=== PATIENT | female | born 1955 | race Caucasian/White ===

== ENCOUNTER 2018-05-10 12:57 | Inpatient (IN) | payer MEDICAID, BC | END 2018-05-17 13:44 | disposition home or self-care (01) | LOC: ER 12:57 → SUR 3N 05-12 13:45 → ED HOLD 15:14 → SUR 3N 17:00 | PROC: 0DNH0ZZ Release Cecum, Open Approach (ICD-10-PCS; principal; 2018-05-11 14:25) | PROC: 0DB80ZZ Excision of Small Intestine, Open Approach (ICD-10-PCS; 2018-05-11 14:25) | PROC: 0DN80ZZ Release Small Intestine, Open Approach (ICD-10-PCS; 2018-05-11 14:25) | PROC: 0DTJ0ZZ Resection of Appendix, Open Approach (ICD-10-PCS; 2018-05-11 14:25) | DX: K56.601 Complete intestinal obstruction, unspecified as to cause (principal); E03.9 Hypothyroidism, unspecified; I10 Essential (primary) hypertension; F32.9 Major depressive disorder, single episode, unspecified; N39.0 Urinary tract infection, site not specified; R00.0 Tachycardia, unspecified ==

== ENCOUNTER 2019-11-02 20:51 | Emergency (ER) | payer BC, MEDICAID ==
[~2019-11-02] VITALS: Ht 152.4 cm; Wt 75.9 kg
[~2019-11-02 20:51] MED LIST: ARIP15TA3 PO; BUPR75TA12 PO; CARV6.253 PO; CHOL100046 PO; CYAN25003 SL; ESCI20TA45 PO; ESTR0.5T28 PO; FURO40TA4; HYDR-3972 PO; IPRA30SP; LEVO150T8; LISI-600; OMEP40CA13 PO; POTA10TA15 PO; TOPI25TA49
[2019-11-02] MEDS ORDERED: DOXY100C76 PO (21:52)
[2019-11-02 22:13] VITALS: BP 119/78
--- NOTE | 2019-11-03 09:32 | NUR ---
Patient called regarding ED visit yesterday. Patient stated that she was supposed to be continuing to take her clindamycin that she was prescribed at a doctor's office in [place], but when coming to [place] patients son packed her bags and the medication was forgotten. I spoke with Anibal TRIMBLE regarding this and per Luis TRIMBLE yesterday patient was to continue medication. Ainbal TRIMBLE gave me verbal orders to call in a prescription for clindamycin 450 mg PO QID x14 days with 0 refills. Notified patient that I would all in prescription for her and that she could go pick it up later today. Patient stated that she would like prescription to be called into [facility] [address] [facility]. Call in prescriptions to [facility] per patient request.
== END 2019-11-02 22:16 | disposition home or self-care (01) ==
LOC: ER 20:52
DX: L97.519 Non-pressure chronic ulcer of other part of right foot with unspecified severity (principal); I10 Essential (primary) hypertension; J45.909 Unspecified asthma, uncomplicated; F32.9 Major depressive disorder, single episode, unspecified; Z98.890 Other specified postprocedural states; Z72.89 Other problems related to lifestyle; Z90.49 Acquired absence of other specified parts of digestive tract; Z88.8 Allergy status to other drugs, medicaments and biological substances; Z88.6 Allergy status to analgesic agent; Z79.899 Other long term (current) drug therapy
CPT/HCPCS: 73630; 99283

== ENCOUNTER 2019-11-05 08:20 | Outpatient (CLI) | payer BC ==
[~2019-11-05 08:20] MED LIST changes: +DOXY100C76 PO; -LEVO150T8; +LEVO150T8 PO
[2019-11-05] MEDS ORDERED: LIDOcaine 2% 5ml jelly ONE (09:09)
[2019-11-05 09:34] LABS: BASOPHILS % (AUTO) 0.2 % (0-1); EOSINOPHILS % (AUTO) 0 % (0-6); HEMATOCRIT 35.6 % (35.0-45.0); HEMOGLOBIN 11.8 g/dl (12.0-16.0); LYMPHOCYTES # (AUTO) 0.9 X10'3 (1.1-4.8); LYMPHOCYTES % (AUTO) 18.1 % (21-51); MEAN CORPUSCULAR HEMOGLOBIN 26.6 PG (27.0-31.0); MEAN CORPUSCULAR HGB CONC 33.1 g/dL (33.0-36.5); MEAN CORPUSCULAR VOLUME 80.4 FL (78-98); MEAN PLATELET VOLUME 7.6 FL (7.4-10.4); MONOCYTES # (AUTO) 0.8 X10'3 (0-0.9); MONOCYTES % (AUTO) 15.3 % (2-12); NEUTROPHILS # (AUTO) 3.3 X10'3 (1.8-7.7); NEUTROPHILS % (AUTO) 66.4 % (42-75); PLATELET COUNT 252 X10'3 (140-440); RED BLOOD COUNT 4.43 X10'6 (4.20-5.60); RED CELL DISTRIBUTION WIDTH 17.5 % (11.5-14.5)
[2019-11-05 09:56] LABS: ALANINE AMINOTRANSFERASE 26 U/L (12-78); ALBUMIN 3.5 G/DL (3.4-5.0); ALBUMIN/GLOBULIN RATIO 1.1 (1.1-1.5); ALKALINE PHOSPHATASE 95 IU/L (46-116); ANION GAP 6 (8-16); ASPARTATE AMINO TRANSFERASE 18 U/L (10-37); BILIRUBIN,TOTAL 0.5 MG/DL (0.1-1.0); BLOOD UREA NITROGEN 15 MG/DL (7-18); BUN/CREATININE RATIO 18.5 (6.6-38.0); C-REACTIVE PROTEIN 1.46 MG/DL (0.0-0.5); CALCIUM 9.1 MG/DL (8.5-10.1); CHLORIDE 92 MMOL/L (99-107); CREATININE 0.81 MG/DL (0.40-0.90); GLUCOSE 109 MG/DL (70-104); POTASSIUM 3.6 MMOL/L (3.5-5.1); SODIUM 128 MMOL/L (135-145); TOTAL CARBON DIOXIDE 29.6 MMOL/L (24-32); TOTAL PROTEIN 6.6 G/DL (6.4-8.2); eGFR 71 ML/MIN
[2019-11-05 10:02] LABS: HEMOGLOBIN A1C 5.8 % (4.5-6.2)
[2019-11-11] MEDS ORDERED: DOXY-327 PO (11:50)
== END 2019-11-05 11:09 | disposition home or self-care (01) ==
LOC: EDSTATUS 08:20 → WOUND CARE 08:20
PROVIDERS: ATTEND Nurse Practitioner
DX: S91.109A Unspecified open wound of unspecified toe(s) without damage to nail, initial encounter (principal); L97.512 Non-pressure chronic ulcer of other part of right foot with fat layer exposed; M20.42 Other hammer toe(s) (acquired), left foot; I10 Essential (primary) hypertension; K21.9 Gastro-esophageal reflux disease without esophagitis; E07.9 Disorder of thyroid, unspecified; M19.90 Unspecified osteoarthritis, unspecified site; M10.9 Gout, unspecified; F32.9 Major depressive disorder, single episode, unspecified; Z90.89 Acquired absence of other organs; Z98.890 Other specified postprocedural states; Z90.49 Acquired absence of other specified parts of digestive tract; Z79.899 Other long term (current) drug therapy; Z96.60 Presence of unspecified orthopedic joint implant; W29.8XXD Contact with other powered hand tools and household machinery, subsequent encounter; Y93.89 Activity, other specified; Y92.89 Other specified places as the place of occurrence of the external cause; Y99.8 Other external cause status
CPT/HCPCS: 36415; 80053; 83036; 85025; 85651; 86140; 87635; 93005; G0463

== ENCOUNTER 2019-11-12 08:26 | Day surgery (SDC) | payer BC ==
[~2019-11-12] VITALS: Ht 152.4 cm; Wt 75.8 kg
[~2019-11-12 08:26] MED LIST changes: +DOXY-327 PO; -DOXY100C76 PO; -HYDR-3972 PO; +MESSAGE TO NURSING PO ONE; -TOPI25TA49; +cefazolin/dext.iso 2gm/50ml 50 ML IV ONE; +famotidine 20mg tablet PO ONE; +ringers solution, lacted 1,000 ML IV SCH
[2019-11-12 09:05] VITALS: BP 111/70
[2019-11-12] MEDS ORDERED: bacitracin 15gm ointment TP ONE (09:48)
[2019-11-12] MEDS ORDERED: BUPIVAcaine/PF 2.5 mg/ml (0.25%) 30ml vial ONE (09:49)
[2019-11-12] MEDS ORDERED: ringers solution, lacted 1,000 ML IV SCH (10:48)
[2019-11-12] MEDS ORDERED: ondansetron/PF 4mg/2ml inj IV PRN (10:50)
[2019-11-12] MEDS ORDERED: morphine 2 MG/ML inj. syringe IV PRN (10:50)
[2019-11-12] MEDS ORDERED: morphine 4 MG/ML inj SYRINge IV PRN (10:50)
[2019-11-12] MEDS ORDERED: ROPIVAcaine 0.5% (5mg/ml) 30ml vial ONE (11:24)
[2019-11-12] MEDS ORDERED: propofol inj 20 ML IV ONE (11:48)
[2019-11-12 12:03] VITALS: BP 106/70
--- NOTE | 2019-11-12 12:03 | NUR ---
ARRIVED IN PACU VIA GURNEY FROM OR WITH DR Batista IN ATTENDANCE. REPORT RECEIVED. PT AWAKE AND VS STABLE
[2019-11-12 12:13] VITALS: BP 114/76
[2019-11-12 12:23] VITALS: BP 114/79
--- NOTE | 2019-11-12 12:33 | NUR ---
PT AWAKE, DRINKING SODA. WAITING FOR RIDE. REVIEWED DISCHARGE INSTRUCTIONS WITH HER
--- NOTE | 2019-11-12 12:53 | NUR ---
UP STEADY ON FEET WITH PARTIAL WT BEARING. DRESSED WITHOUT HELP. W/C TO BR VOIDED QS. TO CAR ASSISTED BY NURSE WITHOUT INCIDENT
--- NOTE | 2019-11-12 13:01 | NUR ---
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
== END 2019-11-12 12:53 | disposition home or self-care (01) ==
LOC: PAS 08:26
PROVIDERS: ATTEND Podiatrist Foot & Ankle Surgery
DX: M86.8X7 Other osteomyelitis, ankle and foot (principal); L97.519 Non-pressure chronic ulcer of other part of right foot with unspecified severity
CPT/HCPCS: 28825; 82948; A6222; J2704; J3490; A6449; A7000; J2795; J7120

== ENCOUNTER 2024-12-30 18:51 | Emergency (ER) | payer MEDICARE, OTHER ==
[~2024-12-30] VITALS: Ht 152.4 cm; Wt 70.4 kg
[~2024-12-30 18:51] MED LIST changes: +BUPR-297 PO; -BUPR75TA12 PO; -DOXY-327 PO; +DOXY-460 PO; +ESCI20TA39 PO; -ESCI20TA45 PO; -LISI-600; +LISI20TA28; -MESSAGE TO NURSING PO ONE; -OMEP40CA13 PO; -cefazolin/dext.iso 2gm/50ml 50 ML IV ONE; -famotidine 20mg tablet PO ONE; -ringers solution, lacted 1,000 ML IV SCH
--- NOTE | 2024-12-30 19:14 | ELECTROCARDIOGRAPH REPORT ---
[facility] Test Date: 2024-12-30 Test Time: 19:11:46 Pat Name: RUPAL CASE Department: EMERGENCY ROOM Room: Gender: F Legal Billing Coordinator: MORENA : 1955 Requested By: DEV BURNS Order Number: [id number] Reading MD: Dr. Bob Jeffers Measurements Intervals [place] Rate: 82 P: 47 ID: [id number] QRS: 28 QRSD: 87 T: 47 QT: 377 QTc: 441 Interpretive Statements Sinus rhythm Probable left atrial enlargement Probable anteroseptal infarct, old Baseline wander in lead(s) V2 Electronically Signed On 12-31-2024 7:40:[address] Bob Jeffers Please click the below link to view image of tracing.
[2024-12-30 19:16] LABS: MEAN PLATELET VOLUME 8.6 FL (7.4-10.4); RED CELL DISTRIBUTION WIDTH 15.8 % (11.5-14.5)
[2024-12-30 19:32] LABS: CREATININE 0.86 MG/DL (0.40-0.90); TOTAL CARBON DIOXIDE 30.3 MMOL/L (24-32); eCRCL 44 ML/MIN; eGFR 65 ML/MIN
[2024-12-30 19:39] LABS: PRO BRAIN NATRIURETIC PEPTIDE 162 PG/ML (0-125)
--- NOTE | 2024-12-30 19:40 | RADIOLOGY REPORT ---
CHEST RADIOGRAPH Indication: CP Technique: Single frontal view of the chest was obtained Comparison: None FINDINGS: Lines and Tubes: None Lungs: No focal consolidation. Pleura: No effusion. No pneumothorax. Cardiomediastinal contours: Unremarkable Bones: No acute osseous abnormality. IMPRESSION: No acute cardiopulmonary disease.
--- NOTE | 2024-12-30 22:58 | Physician Documentation ---
History of Present Illness ~ General Chief Complaint: See Chief Complaint Stated Complaint: NECK PAIN Time Seen by MD: 22:35 Primary Medical Doctor: n/a Mode of Arrival: POV History of Present Illness Initial Comments Patient presents to the emergency room with chief complaint of blue lips. Patient has history of paroxysmal atrial fibrillation. Patient was in the kitchen when her daughter came home from work and noticed that her lips were blue. She also is feeling a little short of breath and she looked down at her watch that has said atrial fibrillation therefore she came in to be evaluated. She is feeling much better now. Denies any chest pain. Medication Reconciliation Allergies: Coded Allergies: promethazine (Verified Allergy, Mild, 12/30/24) dystonia midazolam HCl (Verified Allergy, Unknown, 12/30/24) prochlorperazine (Verified Allergy, Unknown, 12/30/24) ibuprofen (Verified Adverse Reaction, Unknown, HYPERTENSIVE CRISIS, 12/30/24) Uncoded Allergies: BLUE CHEESE (Allergy, Severe, Swelling, 10/02/10) RYE (Allergy, Severe, Swelling, 10/02/10) [place] CHEESE (Allergy, Severe, Swelling, 10/02/10) BENEDRYL (Allergy, Unknown, 05/10/18) DEMORAL (Adverse Reaction, Unknown, 05/10/18) Scheduled Aripiprazole* (Abilify*), 15 TAB PO DAILY, (Reported) Bupropion HCl (Bupropion HCl), 2 TAB PO BID, (Reported) Carvedilol (Carvedilol), 1 TAB PO BID, (Reported) Cholecalciferol (Vitamin D), 5 CAP PO DAILY, (Reported) Cyanocobalamin (Vitamin B-12) (Vitamin B-12), 2,500 MCG SL DAILY, (Reported) Doxycycline Monohydrate (Doxycycline Monohydrate), 1 TAB PO BID, (Reported) Escitalopram Oxalate (Escitalopram Oxalate), 1 TAB PO DAILY, (Reported) Estradiol (Estradiol), 1 TAB PO DAILY, (Reported) Furosemide (Furosemide), DAILY, (Reported) Ipratropium [place] Nasal [place]* (Atrovent Nasal [place]*), BID, (Reported) Levothyroxine Sodium (Levothyroxine Sodium), 200 MCG PO DAILY, (Reported) Lisinopril (Lisinopril), DAILY, (Reported) Potassium Chloride (Potassium Chloride), 2 TAB PO BID, (Reported) Past Medical History Past Medical History: Hypertension, Asthma, Peptic Ulcer Disease, UTI, Depression Past Surgical History: gastric bypass, hysterectomy, orthopedic surgeries, other Alcohol Use: Occasionally Drug Use: none Lives In: Home Review of Systems ROS All review of systems negative except as per HPI Physical Exam Physical Exam Vital Signs: Temperature: 97.8, Source: Temporal, Heart Rate: 76, Respiratory Rate: 18, BP: 135/84, Pulse Oximetry: 99, Weight: 70.400 Oxygen Flow Rate: 0 Physical Exam General: Patient is awake, alert, oriented x4 in no acute distress and well appearing.~ Head: Normocephalic and atraumatic. Eyes: Conjunctival normal. EOMI. PERRL. ENT: Mucous membranes moist. Good skin color Neck: Supple, trachea is midline. Chest: Clear to auscultation bilaterally without rales, rhonchi, or wheezes. There is no accessory muscle use or retractions. Cardiac: RRR without murmurs, gallops, or rubs. Abd: Soft, nondistended, nontender, with normoactive bowel sounds. No guarding, rebound, or rigidity. Extremities: Normal strength. Normal range of motion. No deformities or edema. Progress Results/Orders Results/Orders Orders - DEVIN HENSLEY MD Chest,Single View (12/30/24 19:05) Monitor (12/30/24 19:05) Saline Lock (12/30/24 19:05) Oxygen (12/30/24 19:05) Hs Troponin I W Calculations (12/30/24 22:05) Completed Orders - DEVIN HENSLEY MD Chest,Single View (12/30/24 19:05) Cbc/Diff (12/30/24 19:05) BMP (12/30/24 19:05) PBNP (12/30/24 19:05) Electrocardiogram (12/30/24 19:05) Hs Troponin I W Calculations (12/30/24 19:05) Hs Troponin I W Calculations (12/30/24 21:05) CMP (12/30/24 19:05) Vital Signs 12/30/24 12/30/24 12/30/24 18:54 22:21 22:31 Temp 97.8 Pulse 90 76 Resp 16 18 18 B/P (MAP) 130/81 135/84 (101) Pulse Ox 100 99 O2 Flow Rate 0 Laboratory Tests Test 12/30/24 19:09 12/30/24 21:06 12/30/24 22:16 White Blood Count 10.0 Red Blood Count 4.61 Hemoglobin 11.8 L Hematocrit 35.8 Mean Corpuscular Volume 77.5 L Mean Corpuscular Hemoglobin 25.5 L Mean Corpuscular Hemoglobin Concent 32.9 L Red Cell Distribution Width 15.8 H Platelet Count 257 Mean Platelet Volume 8.6 Neutrophils (%) (Auto) 68.3 Lymphocytes (%) (Auto) 21.0 Monocytes (%) (Auto) 9.7 Eosinophils (%) (Auto) 0.5 Basophils (%) (Auto) 0.5 Neutrophils # (Auto) 6.8 Lymphocytes # (Auto) 2.1 Monocytes # (Auto) 1.0 H Eosinophils # (Auto) 0.1 Basophils # (Auto) 0.1 CBC Comment Sodium Level 136 Potassium Level 3.9 Chloride Level 102 Carbon Dioxide Level 30.3 Anion Gap 4 L Blood Urea Nitrogen 15 Creatinine 0.86 Estimated GFR/1.73 m2 65 BUN/Creatinine Ratio 17.4 Glucose Level 92 Calcium Level 8.5 Total Bilirubin 0.3 Aspartate Amino Transf (AST/SGOT) 31 Alanine Aminotransferase (ALT/SGPT) 27 Alkaline Phosphatase 112 Troponin I High Sensitivity 4 4 Pro-B-Type Natriuretic Peptide 162 H Total Protein 6.8 Albumin 3.5 Globulin 3.3 Albumin/Globulin Ratio 1.1 Chemistry Comments Troponin I High Sens Percent Delta 0 Troponin I Hi Sens Absolute Change 0 EKG/XRAY/CT/US/VASC/MRI EKG : Additional Comment EKG interpreted by myself shows time of 1910, rate 82, sinus rhythm, normal axis, no ST changes Chest X-Ray : Additional Comments Exam: CHEST,SINGLE VIEW CHEST RADIOGRAPH Indication: CP Technique: Single frontal view of the chest was obtained Comparison: None FINDINGS: Lines and Tubes: None Lungs: No focal consolidation. Pleura: No effusion. No pneumothorax. Cardiomediastinal contours: Unremarkable Bones: No acute osseous abnormality. IMPRESSION: No acute cardiopulmonary disease. Medical Decision Making Additional information obtaine: old records Findings Patient presents to the emergency room with chief complaint of blue lips. Differentials include but are not limited to hypoxia, ACS, anemia, hypothermia therefore emergent labs and imaging indicated. Labs and imaging are reassuring. Patient's physical exam shows good skin color and daughter at bedside agrees. Unknown what occurred during patient's reported episode. Possible episode of atrial fibrillation leading to some symptoms. Her EKGs reassuring for sinus rhythm at this juncture. ER precautions discussed. Differential Diagnosis As above Departure Disposition: HOME / SELF CARE / HOMELESS Impression: Primary Impression: General medical exam Condition: Stable Discharge Instructions: General Discharge Instructions Referrals: NO PRIMARY CARE PROVIDER (PCP) Prescriptions Nitroglycerin SL* (Nitrostat SL*) 0.4 Mg Tablet 1 TAB SL Q5MIN PRN for Chest pain Q5min PRNx3-call MD, #25 TAB Prov: DEVIN HENSLEY MD 12/30/24 Nitroglycerin (Nitro-Bid) 2 % Oint...g. 1 APPLIC TOP BID, #1 TUBE Prov: DEVIN HENSLEY MD 12/30/24 Lisinopril (LISINOPRIL) 10 Mg Tablet 1 TAB PO DAILY for 30 Days, #30 TAB 0 Refills Prov: DEVIN HENSLEY MD 12/30/24 Signature Scribe Signature: No scribe Attestation: The note accurately reflects work and decisions made by me.Devin Hensley MD 12/30/24 23:00 DEVIN HENSLEY MD Dec 30, 2024 22:58
[2024-12-30] MEDS ORDERED: NITR1OIN TOP (23:00)
[2024-12-30] MEDS ORDERED: LISI10TA27 PO (23:00)
[2024-12-30] MEDS ORDERED: NITR0.4T51 SL (23:00)
[2024-12-30 23:12] VITALS: BP 125/82; PULSE 75; RESP 20; TEMP 97.8; O2SAT 98
== END 2024-12-30 23:14 | disposition home or self-care (01) ==
LOC: ER 18:51
DX: Z00.00 Encounter for general adult medical examination without abnormal findings (principal); J45.909 Unspecified asthma, uncomplicated; I10 Essential (primary) hypertension; F32.A Depression, unspecified; Z88.8 Allergy status to other drugs, medicaments and biological substances; Z87.440 Personal history of urinary (tract) infections; Z87.11 Personal history of peptic ulcer disease; Z90.710 Acquired absence of both cervix and uterus; Z79.899 Other long term (current) drug therapy; Z72.89 Other problems related to lifestyle
CPT/HCPCS: 36415; 71045; 80053; 83880; 84484; 85025; 93005; 99285

== ENCOUNTER 2025-01-01 08:56 | Emergency (ER) | payer MEDICARE, OTHER ==
[~2025-01-01] VITALS: Ht 152.4 cm; Wt 69.9 kg
[~2025-01-01 08:56] MED LIST changes: +LISI10TA27 PO; +NITR0.4T51 SL; +NITR1OIN TOP
[2025-01-01 09:06] VITALS: BP 118/83; PULSE 90; RESP 16; TEMP 97.7; O2SAT 98
--- NOTE | 2025-01-01 11:47 | RADIOLOGY REPORT ---
Indication: toe pain with wound s/p stubbed toe a week ago Technique: DI TOE(S)TOES Comparison: None FINDINGS/IMPRESSION: Internal fixation of the 5th proximal, middle and distal phalanx. 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 Possible dislocation of the 4th PIP joint. Correlate with point tenderness/ physical examination findings. 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 Correlate clinically. Osteopenia. Diffuse right foot soft tissue edema especially along the dorsal aspect.
[2025-01-01] MEDS ORDERED: CEPH-585 PO (12:04)
--- NOTE | 2025-01-01 12:08 | Physician Documentation ---
History of Present Illness ~ Chief Complaint: Toe pain Stated Complaint: INFECTED TOE Time Seen by MD: 10:51 OK to notify your PCP?: Yes Primary Medical Doctor: dr. fink in [place] Source: patient Mode of Arrival: POV Exam Limitations: no limitations HPI 69-year-old female with chief complaint right toe pain and concerned that her toe has an infection. She states that her toe has been causing her pain for the past week after she stubbed her toe. Since the pain has not improved and since the toe has gotten increasingly more red and swollen she was concerned about an infection. She states she is visiting here from [place] and will be going back home within the next week. She denies diabetes or any history of peripheral arterial disease. She has been dressing the toe with a gauze and waterproof dressing. She has not noticed an odor from the area, no fever, chills or pain with movement of toe. Tetanus witin 5 years: Yes Medication Reconciliation Allergies: Coded Allergies: promethazine (Verified Allergy, Mild, 01/01/25) dystonia midazolam HCl (Verified Allergy, Unknown, 01/01/25) prochlorperazine (Verified Allergy, Unknown, 01/01/25) ibuprofen (Verified Adverse Reaction, Unknown, HYPERTENSIVE CRISIS, 01/01/25) Uncoded Allergies: BLUE CHEESE (Allergy, Severe, Swelling, 10/02/10) RYE (Allergy, Severe, Swelling, 10/02/10) [place] CHEESE (Allergy, Severe, Swelling, 10/02/10) BENEDRYL (Allergy, Unknown, 05/10/18) DEMORAL (Adverse Reaction, Unknown, 05/10/18) Scheduled Aripiprazole* (Abilify*), 15 TAB PO DAILY, (Reported) Bupropion HCl (Bupropion HCl), 2 TAB PO BID, (Reported) Carvedilol (Carvedilol), 1 TAB PO BID, (Reported) Cholecalciferol (Vitamin D), 5 CAP PO DAILY, (Reported) Cyanocobalamin (Vitamin B-12) (Vitamin B-12), 2,500 MCG SL DAILY, (Reported) Doxycycline Monohydrate (Doxycycline Monohydrate), 1 TAB PO BID, (Reported) Escitalopram Oxalate (Escitalopram Oxalate), 1 TAB PO DAILY, (Reported) Estradiol (Estradiol), 1 TAB PO DAILY, (Reported) Furosemide (Furosemide), DAILY, (Reported) Ipratropium [place] Nasal [place]* (Atrovent Nasal [place]*), BID, (Reported) Levothyroxine Sodium (Levothyroxine Sodium), 200 MCG PO DAILY, (Reported) Lisinopril (Lisinopril), DAILY, (Reported) Lisinopril (Lisinopril), 1 TAB PO DAILY Nitroglycerin (Nitro-Bid), 1 APPLIC TOP BID Potassium Chloride (Potassium Chloride), 2 TAB PO BID, (Reported) Scheduled PRN Nitroglycerin SL* (Nitrostat SL*), 1 TAB SL Q5MIN PRN for Chest pain Q5min PRNx3-call Past Medical History Past Medical History: No Pertinent History, Hypertension, Asthma, Peptic Ulcer Disease, UTI, Depression Past Surgical History: gastric bypass, hysterectomy, orthopedic surgeries, ot her Alcohol Use: Occasionally Drug Use: none Lives In: Home Review of Systems All Other Systems at this time: Reviewed and Negative Physical Exam Vital Signs: Temperature: 97.7, Source: Temporal, Heart Rate: 90, Respiratory Rate: 16, BP: 118/83, Pulse Oximetry: 98, Weight: 69.900 Oxygen Flow Rate: 0 Physical Exam General Appearance: Alert, WD/WN. NAD. HEENT: NCAT, PERRL, EOMI. Neck: Supple, trachea midline. Cardiovascular: RRR. No m/r/g. Pedal pulses 2+ bilaterally. Lungs: CTAB. Breathing unlabored Extremities: Normal inspection. No edema. Skin: Warm/dry, normal color. Right big toe open wound measuring about 2 cm in diameter, very superficial. Just the overlying dermis has been removed, visible epidermis, beefy red, clear drainage from wound, no odor. Surrounding the wound the skin is erythematous and mildly edematous over the medial aspect of the wound where there is ttp. Nailplate is thickened but intact. Cap refill at distal toe is less than 2seconds. Procedures Procedures PLACED RIGHT FOOT IN POST OP SHOE (RN PLACED THIS) SIMPLE DRESSING PLACED OVER RIGHT BIG TOE Progress Progress Note Indication: toe pain with wound s/p stubbed toe a week ago Technique: DI TOE(S)TOES Comparison: None FINDINGS/IMPRESSION: Internal fixation of the 5th proximal, middle and distal phalanx. 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 Possible dislocation of the 4th PIP joint. Correlate with point tenderness/ physical examination findings. 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 Correlate clinically. Osteopenia. Diffuse right foot soft tissue edema especially along the dorsal aspect. Results/Orders Reviewed/noted all lab results: Yes Results/Orders Orders - YOHANA CASANOVA Toe(S) (01/01/25 11:23) General Nursing Order (01/01/25 11:23) Completed Orders - YOHANA CASANOVA Toe(S) (01/01/25 11:23) Vital Signs 01/01/25 09:06 Temp 97.7 Pulse 90 Resp 16 B/P (MAP) 118/83 Pulse Ox 98 O2 Flow Rate 0 Medical Decision Making Additional information obtaine: N/A Findings N/A General Diff Dx:Considerations: Include: Other Knee Diff Dx:Considerations: Include: Other Ankle Diff Dx:Considerations: Include: Other Foot Diff Dx:Considerations: Include: Other Toe Diff Dx:Considerations: Include: Abrasion, Cellulitis, Contusion, Dislocation, Felon, Fracture, Hematoma, Laceration, Neurovascular injury, Open fracture, Paronychia, Subungual hematoma, Other Additional Comment SEE TOE DIFFERENTIAL Departure Time of Disposition: 12:04 Disposition: 01 HOME / SELF CARE / HOMELESS Impression: Primary Impression: Pain of toe Qualified Codes: M79.674 - Pain in right toe(s) Additional Impressions: Cellulitis and abscess of lower extremity Open toe wound Qualified Codes: S91.109A - Unspecified open wound of unspecified toe(s) without damage to nail, initial encounter Trauma of toe of right foot Qualified Codes: S99.921A - Unspecified injury of right foot, initial encounter Condition: Stable Discharge Instructions: Cellulitis, Adult, [id number] Additional Instructions: XRAY SHOWS NO ABNORMALITIES OF BONE BUT DOES SHOW SOFT TISSUE SWELLING AND FINDINGS ON EXAM CONSISTENT WITH CELLULITIS RECOMMEND GETTING REFERRAL TO WOUND CARE WHEN YOU RETURN TO [place] (WHICH YOU STATE YOU ARE GOING BACK HOME SOON OR I WOULD HAVE SENT REFERRAL TO OUR WOUND CARE) ANTIBIOTIC TO PHARMACY IF INCREASING PAIN, SWELLING, ODOR, FEVER OR ANY OTHER CONCERNING SYMPTOMS RETURN TO ER Referrals: NO PRIMARY CARE PROVIDER (PCP) Prescriptions Cephalexin*Monohydrate* (Keflex*) 500 Mg Capsule 1 CAP PO QID for 10 Days, #40 CAP Prov: YOHANA CASANOVA 01/01/25 Education Educated: Patient Educated regarding: diagnosis, treatment, need for follow up Signature Scribe Signature: Angelito Attestation: YOHANA POWERS Jan 01, 2025 12:08
== END 2025-01-01 12:16 | disposition home or self-care (01) ==
LOC: ER 08:57
DX: L03.115 Cellulitis of right lower limb (principal); L02.415 Cutaneous abscess of right lower limb; I10 Essential (primary) hypertension; F32.A Depression, unspecified; J45.909 Unspecified asthma, uncomplicated; Z90.710 Acquired absence of both cervix and uterus; Z88.8 Allergy status to other drugs, medicaments and biological substances; Z88.6 Allergy status to analgesic agent; Z79.899 Other long term (current) drug therapy; Z98.890 Other specified postprocedural states; Z72.89 Other problems related to lifestyle
CPT/HCPCS: 73660; 99284; A6258